=== PATIENT | female | born 1985 | race Caucasian/White ===

== ENCOUNTER → 2019-12-19 17:53 | Outpatient (CLI) | payer OTHER, SELFPAY | PROVIDERS: Visit Provider Obstetrics & Gynecology Gynecology | DX: Z11.59 Encounter for screening for other viral diseases (principal) | CPT/HCPCS: 87635; 94799; U0003 ==

== ENCOUNTER 2019-12-22 20:33 | Inpatient (IN) | payer OTHER, SELFPAY ==
[2013-08-15 17:50] VITALS: BMI 23.0
[2019-12-22 20:01] VITALS: BP 130/84; PULSE 84; TEMP 36.1
[2019-12-22 20:34] LABS: ROM Internal Control Test YES-OK TO RESULT pt. (Internal QC); ROM Patient Test POSITIVE (Negative)
[2019-12-22 20:41] VITALS: BMI 30.3
[2019-12-22] MEDS: Lactated Ringers 1,000 ML 200 ML IV (20:45)
[2019-12-22 21:00] LABS: Absolute Lymphocyte Count 2.07 X10^3/uL (0.83-4.51); Absolute Neutrophil Count 6.3 X10^3/uL (2.0-7.7); Basophil# 0.03 X10^3/uL; Basophil% 0.3 % (0-1); Eosinophil# 0.02 X10^3/uL; Eosinophils% 0.2 % (0-5); Hematocrit 29.6 % (37-47); Hemoglobin 10.6 g/dL (12.0-15.0); Lymphocyte # 2.07 X10^3/ul (4.0); Lymphocyte % 22.7 % (19-41); Mean Corp Hgb Conc 35.8 g/dL (32-36); Mean Corpuscular Hgb 31.3 pg (27.0-32.0); Mean Corpuscular Volume 87.3 fL (81-99); Mean Platelet Vol. 10.3 fl (6.2-12.0); Monocyte# 0.61 X10^3/uL; Monocyte% 6.7 % (0-10); NRBC Flagged by Analyzer 0 % (0-5); Platelet Count 347 K/mm3 (150-450); RBC Distribution Width CV 11.5 % (11.6-14.6); RBC Distribution Width SD 36.9 fl (35.1-43.9); Red Blood Count 3.39 M/mm3 (4.2-5.4); White Blood Count 9.1 K/mm3 (4.4-11.0)
[2019-12-22 21:15] VITALS: BP 127/79; PULSE 81; O2SAT 98
[2019-12-22 21:16] VITALS: TEMP 36.9; TEMP 37.7
[2019-12-22 22:04] VITALS: BP 114/77; PULSE 70
[2019-12-22 23:08] VITALS: BP 133/80; PULSE 69
[2019-12-22] MEDS: Oxytocin 30 units/NS 500 ml 30 UNITS/500 ML IV.SOLN IV (23:14)
[2019-12-23] VITALS (44 sets, daily range): BP systolic 88–140; BP diastolic 58–96; PULSE 60–173; RESP 16; TEMP 36.1–37.7; O2SAT 83–100
[2019-12-23] MEDS: fentaNYL 100 MCG/2 ML Ampul IV (00:39)
[2019-12-23] MEDS: Lactated Ringers 500 ML 999 ML IV ×2 (01:25→03:09)
[2019-12-23] MEDS: Lactated Ringers 1,000 ML 200 ML IV (02:01)
[2019-12-23] MEDS: fentaNYL-bupivacaine (epidural) 100 ML BAG EPIDURAL ×2 (02:10→06:16)
--- NOTE | 2019-12-23 06:38 | PCM.PN.BLA ---
Progress Note Came in approximately 6:15 AM to evaluate this patient who was admitted last night with spontaneous rupture of membranes at term and was started on Pitocin around 11 PM. She received an epidural about 2 AM today since which she has had some variable decelerations but with good variability restored after recovery. The Pitocin was stopped for 2 hours per the RN and then restarted, at which point the patient was having runs of tachysystole followed by wide intervals. Pitocin was backup and at 6 milliunits/min when I arrived. Patient is very comfortable status post epidural. heart rate is currently category 1. Vaginal exam revealed she was complete at +1 station and urine was somewhat blood-tinged. The patient was encouraged to push which she did with good effort. STROKE Vital Signs/Narrative: Vital Signs Temp Pulse BP Pulse Ox 12/23/19 06:20 92 123/79 H 12/23/19 05:45 77 107/59 L 12/23/19 05:42 97.0 F L 84 83 12/23/19 05:41 81 98 12/23/19 04:35 96 115/71 12/23/19 03:27 88 111/62 99 12/23/19 03:22 88 88 12/23/19 03:20 173 H 140/88 H 12/23/19 03:08 85 88/58 L 12/23/19 03:07 98.1 F 12/23/19 02:46 88 93 12/23/19 02:41 90 110/67 100
--- NOTE | 2019-12-23 06:40 | PCM.HP.OB ---
History Date of Admission: 12/22/19 Final KAREN: 12/23/19 Gestational age: 40 Weeks and 0 Days History of this : This is a 34 year-old, G 1], P 0, at 40 weeks gestational age who presented with spontaneous rupture of membranes at home around 6:45 PM on December 22, 2019. has been uneventful other than the fact she is an elderly primigravida. She has had weekly nonstress tests since about 36 weeks and has kept kick counts which have been really reassuring.. Medical History: Medical History (Last Updated 12/23/19 @ 06:[address] Kathleen Bravo MD) None Upper limb fracture only 1998 Allergies No Known Allergies Allergy (Verified 12/22/19 20:16) Home Medications: Home Medications Hydrocodone Bitart/Apap 5-325 [[place] 5/325] 1 - 2 tablet PO Q4H PRN PRN #20 tablet 08/15/13 Norgestimate-Ethinyl Estradiol [Ortho Tri-Cyclen] 1 each PO DAILY 08/15/13 Calcium Carbonate/Vitamin D3 [Calcium 250-D Tablet] 12/22/19 Pnv No.95/Ferrous Fum/Folic AC [ [place]] 1 ea PO 12/22/19 Smoking Status: Former smoker Alcohol: None Number of Fetus(es): 1 History Past Pregnancies: Past Pregnancies Delivery Date Name GA/ Weeks Outcome Route Wt Sex Labor Length Anesthesia Delivery Location Provider FOB Labs: Patient's blood type is O+ hepatitis B RPR, gonorrhea and chlamydia are negative. She is rubella immune. 1 hour Glucola was normal. Group B strep culture is negative. Expected Delivery Method: Spontaneous Vaginal Number of Visits: 14 Review of Systems Cardiovascular: Denies: Chest Pain, Palpitations Respiratory: Denies: Cough, Shortness of breath at rest, Sputum production Gastrointestinal: Denies: Abdominal Pain, Nausea, Vomiting Genitourinary: Denies: Dysuria Psychiatric: Denies: Anxiety, Depression, Homicidal Ideations, Suicidal Ideations Physical Exam Vitals: Vital Signs Temp Pulse BP Pulse Ox 97.0 F L 92 123/79 H 83 12/23/19 05:42 12/23/19 06:20 12/23/19 06:20 12/23/19 05:42 General: Alert, Oriented x3 HEENT: Atraumatic Cardiovascular: Regular rate Abdomen: Gravid Extremities:: No clubbing Neurological: Neuro grossly intact J[employer]ER: Normal external genitalia Estimated gestational size: Appropriate for gestational size Presentation: Cephalic Cervix Dilation (cm): 1 Effacement (%): 60 Assessment/Plan This is a 34 year-old, G [], P [], at 39 weeks gestational age with confirmed spontaneous rupture of membranes. Mild irregular contractions only. Admit and augment labor with Pitocin as needed. Procedure Criteria COVID Risk Discussion: Patient received testing for COVID approximately 72 hours ago and the results is received and negative. She has been counseled on limiting exposure to possible infection as labor approaches.
[2019-12-23] MEDS: Oxytocin 30 units/NS 500 ml 30 UNITS/500 ML IV.SOLN 334 UNITS IV (07:59)
--- NOTE | 2019-12-23 08:28 | PCM.PN.BLA ---
Progress Note DELIVERY NOTE Patient pushed well and was delivered of a vigorous male infant with Apgars of 8& 9 over a 1st degree midline vaginal tear. Infant delivered in DIANE position. No cord loops or entanglements. Nose and mouth suctioned on perineum and rest of infant delivered without any difficulty. Placed on maternal abdomen. weight pending. 3rd stage managed actively for delivery of small, complete placenta with 3 vessel cord. Patient tolerated delivery very well. Vagina repaired with #2-0 Vicryl in running fashion. EBL 300ml STROKE Vital Signs/Narrative: Vital Signs Temp Pulse BP Pulse Ox 12/23/19 08:16 81 118/96 H 12/23/19 07:23 97.9 F 73 116/68 12/23/19 06:20 92 123/79 H 12/23/19 05:45 77 107/59 L 12/23/19 05:42 97.0 F L 84 83 12/23/19 05:41 81 98 12/23/19 04:35 96 115/71
[2019-12-23] MEDS: Methylergonovine 0.2 MG/ML Ampul IM (08:50)
[2019-12-24 01:40] VITALS: BP 114/73; RESP 16; TEMP 37.2
[2019-12-24] MEDS: Acetaminophen 500 MG Tablet 1000 MG PO (03:07)
[2019-12-24 05:20] VITALS: BP 110/67; PULSE 89; RESP 18; TEMP 36.7
[2019-12-24 06:29] LABS: Hematocrit 27.2 % (37-47); Hemoglobin 9.4 g/dL (12.0-15.0); Mean Corp Hgb Conc 34.6 g/dL (32-36); Mean Corpuscular Hgb 30.7 pg (27.0-32.0); Mean Corpuscular Volume 88.9 fL (81-99); Mean Platelet Vol. 9.5 fl (6.2-12.0); Platelet Count 300 K/mm3 (150-450); RBC Distribution Width CV 11.9 % (11.6-14.6); RBC Distribution Width SD 38.2 fl (35.1-43.9); Red Blood Count 3.06 M/mm3 (4.2-5.4); White Blood Count 13.3 K/mm3 (4.4-11.0)
[2019-12-24 08:30] VITALS: BP 124/86; PULSE 86; RESP 16; TEMP 36.3
[2019-12-24 14:00] VITALS: BP 126/85; PULSE 96; RESP 16; TEMP 36.3
== END 2019-12-24 14:10 | disposition home or self-care (01) | DRG 807 ==
LOC: WPOUT 20:36 → WP 20:37
PROVIDERS: Admitting Provider Obstetrics & Gynecology Gynecology; Visit Provider Obstetrics & Gynecology Gynecology
DX: O76 Abnormality in fetal heart rate and rhythm complicating labor and delivery (principal); O70.0 First degree perineal laceration during delivery; Z87.891 Personal history of nicotine dependence; Z3A.40 40 weeks gestation of pregnancy; Z37.0 Single live birth
CPT/HCPCS: 59025; 59050; 84112; 85025; 85027; 86850; 86900; 86901; 99218; J7120; G0378